=== PATIENT | male | born 1955 | race Caucasian/White ===

== ENCOUNTER 2019-09-17 00:32 | Outpatient (CLI) | payer OTHER, SELFPAY ==
[2019-09-17 17:52] LABS: SARS-CoV-2 RNA PCR Negative
== END 2019-09-17 00:33 | disposition home or self-care (01) ==
LOC: ANHCOVIDDT 00:33
PROVIDERS: PCP Family Medicine Adolescent Medicine; Visit Provider Internal Medicine Gastroenterology
DX: Z20.828 Contact with and (suspected) exposure to other viral communicable diseases (principal); Z01.812 Encounter for preprocedural laboratory examination
CPT/HCPCS: 87635; C9803; U0003

== ENCOUNTER 2019-09-20 02:44 | Day surgery (SDC) | payer OTHER, SELFPAY ==
[2019-09-16 13:11] VITALS: BMI 38.6
--- NOTE | 2019-09-20 08:55 | WPDANESEPPF ---
Anes - Initial Pre Proc Eval Procedure: Operation Date: 09/20/19 10:00 Proposed Procedures p Esophagogastroduodenoscopy & Screening Colonoscopy - Mao Abel MD Date/Time: 09/20/19 08:55 Surgeon: Mao Abel MD Pre Op Diagnosis: Hx Colon Polyps/ Epigastric Pain Patient Data Age: 64 Gender: M Height: 5 ft 4 in Weight: 102 kg Allergies Allergy/AdvReac Type Severity Reaction Status Date / Time No Known Allergies Allergy Mild Verified 09/20/19 09:01 Home Medications Medication Instructions Recorded Confirmed Type atorvastatin 40 mg PO HS 09/16/19 09/16/19 History ezetimibe 10 mg PO DAILY 09/16/19 09/16/19 History indomethacin 50 mg TID 09/16/19 09/16/19 History lorazepam 1 mg PO BID PRN 09/16/19 09/16/19 History pantoprazole 40 mg PO BID 09/16/19 09/16/19 History sertraline 100 mg DAILY 09/16/19 09/16/19 History tramadol 50 mg PO Q6H PRN 09/16/19 09/16/19 History Patient hx anesthesia problems: none Family hx anesthesia problems: none PMFSH Past Medical History Medical History (Updated 09/20/19 @ 08:56 by Ankit Frausto MD) Depression GERD (gastroesophageal reflux disease) Hyperlipidemia Obesity Surgical History Surgical History H/O arthroscopic knee surgery History of carpal tunnel surgery Social History Social History Gender identity (if verbalized by the patient): Male Anes - Eval Final PreProcedure Day of Procedure 09/20/19 08:55 Patient weight: obese Heart: regular rate and rhythm Lungs: clear to auscultation Airway: Mallampati scale class II Neurological: alert and oriented Last oral intake: >/= 8 hours ASA classification: III Emergent: no Anesthetic plan: proceed Anesthesia type and monitoring: general GIVS and standard monitoring Informed Consent: The patient's anesthetic plan and its attendant risks and benefits were discussed with the patient/family/POA. Questions were solicited and answers provided to the satisfaction of the patient/family/POA.
[2019-09-20 09:04] VITALS: BP 145/74; PULSE 85; RESP 16; TEMP 36.6; O2SAT 96
--- NOTE | 2019-09-20 09:09 | WPDGICN ---
Assessment and Plan Assessment and plan (1) Epigastric abdominal pain: Code(s): R10.13 - Epigastric pain Status: Acute Assessment and Plan: Patient with new epigastric pain poorly responsive to proton pump inhibitors. Plan is to evaluate further with an EGD. (2) GERD (gastroesophageal reflux disease): Code(s): K21.9 - Gastro-esophageal reflux disease without esophagitis Status: Acute Assessment and Plan: Long history of GE reflux disease previously stable on PPI. Now with epigastric pain. Plan to proceed with EGD to assess more thoroughly. (3) History of colon polyps: Code(s): Z86.010 - Personal history of colonic polyps Status: Acute Assessment and Plan: Patient has a distant history of colon polyp. Plan is for surveillance exam at this time. Colonoscopy will be performed. (4) DJD (degenerative joint disease) of cervical spine: Code(s): M47.812 - Spondylosis without myelopathy or radiculopathy, cervical region Status: Acute GI Consult Note Consult date/time: 09/20/19 09:09 HPI: Indra Olivera is a 64 year old male Seen in evaluation at the request of Dr. Pratik West. Patient has a long history of acid reflux. He states symptoms have been present for 30 years. He typically would get heartburn and acid regurgitation. Symptoms have responded well to proton pump inhibitors. In May of 2019 patient had recurrence with epigastric pain in the midepigastric area of the abdomen. He describes pain radiating to the back. States that his current symptoms come and go. He no longer has improvement with taking pantoprazole 40 mg p.o. b.i.d.. He does notice that he has arthritis in his neck for which he takes indomethacin 50 mg p.o. t.i.d.. He has noticed slight improvement on discontinuing this medication. He denies any weight loss or bleeding. Past medical history is also significant for colon polyps. He initially had colon polyps 20 years ago. He also had colon polyps 15 years ago. Most recent exam was unremarkable. Patient denies any alteration in his bowel habits. He denies any pain or bleeding. Family history is noncontributory. Review of Systems Review of Systems: All systems reviewed & are unremarkable except as noted in HPI and below [facility] Past Medical History Medical History Depression GERD (gastroesophageal reflux disease) Hyperlipidemia Obesity Surgical History Surgical History H/O arthroscopic knee surgery History of carpal tunnel surgery Social History Social History Gender identity (if verbalized by the patient): Male Meds Home Medications and Allergies Home Medications Medication Instructions Recorded Confirmed Type atorvastatin 40 mg PO HS 09/16/19 09/20/19 History ezetimibe 10 mg PO DAILY 09/16/19 09/16/19 History indomethacin 50 mg TID 09/16/19 09/16/19 History lorazepam 1 mg PO BID PRN 09/16/19 09/16/19 History pantoprazole 40 mg PO BID 09/16/19 09/16/19 History sertraline 100 mg DAILY 09/16/19 09/16/19 History tramadol 50 mg PO Q6H PRN 09/16/19 09/16/19 History Allergies Allergy/AdvReac Type Severity Reaction Status Date / Time No Known Allergies Allergy Mild Verified 09/20/19 09:01 Vital Signs Vital Signs - 24 hr 09/20/19 09:04 Temperature 36.6 C Pulse Rate 85 Respiratory Rate 16 Blood Pressure 145/74 H Pulse Oximetry 96 Results Labs Labs: Physical exam reveals patient to be alert. Vital signs are stable. HEENT exam unremarkable. Lungs are clear to auscultation and percussion. Heart is without murmur or extra sounds. Abdominal exam bowel sounds are present soft nontender with no organomegaly. Digital external rectal exam is normal.
[2019-09-20] MEDS: LACTATED RINGERS 1,000 ML 150 ML IV CONT (09:31)
--- NOTE | 2019-09-20 10:45 | SUR.OPER ---
EGD END TIME 1042 COLON START TIME 1044
[2019-09-20 11:01] VITALS: BP 127/70; PULSE 69; RESP 17; O2SAT 97
[2019-09-20 11:11] VITALS: BP 126/73; PULSE 69; RESP 25; O2SAT 97
[2019-09-20 11:21] VITALS: BP 130/72; PULSE 75; RESP 21; O2SAT 97
== END 2019-09-20 11:40 | disposition home or self-care (01) ==
PROVIDERS: PCP Family Medicine Adolescent Medicine; Visit Provider Internal Medicine Gastroenterology
PROC: 0DJ08ZZ Inspection of Upper Intestinal Tract, Via Natural or Artificial Opening Endoscopic (ICD-10-PCS; CPT 43235; principal; 2019-09-20 10:00)
DX: Z12.11 Encounter for screening for malignant neoplasm of colon (principal); K64.8 Other hemorrhoids; K57.30 Diverticulosis of large intestine without perforation or abscess without bleeding; K29.80 Duodenitis without bleeding; K21.9 Gastro-esophageal reflux disease without esophagitis; M47.812 Spondylosis without myelopathy or radiculopathy, cervical region; E78.5 Hyperlipidemia, unspecified; F32.9 Major depressive disorder, single episode, unspecified; E66.9 Obesity, unspecified; Z68.39 Body mass index [BMI] 39.0-39.9, adult
CPT/HCPCS: 43239; G0105; 87081; J2704; J7120

== ENCOUNTER → 2020-07-20 10:01 | Outpatient (CLI) | payer OTHER, SELFPAY ==
--- NOTE | ~2020-07-20 | XR_ITS ---
XR chest 2V DATE: 07/20/2020 10:24 INDICATION: Dyspnea on exertion TECHNIQUE: 2 views COMPARISON: 03/11/2019 2 view chest FINDINGS: Normal heart size. Aortic arch calcification. No hilar or mediastinal enlargement. No pulmo nary infiltrate or consolidation, pleural effusion or pulmonary vascular congestion or pneumothorax. Diffuse idiopathic skeletal hyperostosis of the thoracic spine. IMPRESSION: No active cardiopulmonary disease Reviewed, dictated and finalized at location A.
== END ==
PROVIDERS: PCP Family Medicine Adolescent Medicine; Visit Provider Family Medicine Adolescent Medicine
DX: R06.09 Other forms of dyspnea (principal)
CPT/HCPCS: 71046

== ENCOUNTER 2022-02-01 11:15 | Outpatient (CLI) | payer OTHER, SELFPAY ==
--- NOTE | ~2022-02-01 | XR_ITS ---
XR hip BI 2V w AP pelvis DATE: 02/01/2022 12:01 INDICATION: Hip pain TECHNIQUE: AP pelvis. AP and lateral views of each hip. COMPARISON: None FINDINGS: No pelvic fracture or bone destruction. No fracture or dislocation, avascular necrosis or b one destruction of either hip. Pubic symphysis and sacral iliac joints are intact. There is a transitional lumbosacral vertebra. Degenerative spurring of the lower lumbar spine. IMPRESSION: Transitional lumbosacral vertebra No fracture or dislocation of either hip Reviewed, dictated and finalized at location A.
--- NOTE | ~2022-02-01 | XR_ITS ---
XR shoulder RT min 2V DATE: 02/01/2022 12:02 INDICATION: Right shoulder pain TECHNIQUE: 4 views COMPARISON: None FINDINGS: No fracture or dislocation, periosteal reaction or bone destruction. Mild spurring at the r ight acromion clavicular joint. Diffuse idiopathic skeletal hyperostosis of the thoracic spine. Degenerative disc disease of the lowe r cervical spine. IMPRESSION: Mild degenerative spurring of the right acromion clavicular joint Degenerative disease in lower cervical spine and diffuse idiopathic skeletal hyperostosis of the thor acic spine Reviewed, dictated and finalized at location A. IMPRESSION: Mild degenerative spurring of the right acromion clavicular joint Degenerative disease in lower cervical spine and diffuse idiopathic skeletal hy perostosis of the thoracic spine
--- NOTE | ~2022-02-01 | XR_ITS ---
EXAMINATION: XR_[id number]_CR, XR thoracic spine 2V, XR lumbar spine 2-3V DATE: 02/01/2022 12:02 INDICATION: Neck pain TECHNIQUE: 1. AP, lateral and odontoid views of the cervical spine were obtained. 2. AP, lateral and lateral swimmers views of the thoracic spine were obtained. 3. AP, lateral and cone-down lateral lumbosacral views of the lumbar spine were obtained. COMPARISON: Two-view chest radiograph dated 07/20/2020 FINDINGS: Cervical spine: Alignment is normal. Dens is intact. Mild to moderate atlantoaxial articulation. Vertebral body heigh ts are normal. Moderate disc height loss at C5-C6 and mild disc height loss at C6-C7 with degenerativ e endplate changes, posterior endplate osteophytes and at least moderate bilateral uncovertebral oste oarthritis at both levels. Multilevel mild to moderate cervical facet osteoarthritis. No fracture young ntified. Prevertebral soft tissues are normal. Thoracic spine: There are 11 paired rib bearing thoracic segments. Mild thoracic dextrocurvature. Sagittal alignment is normal. Minimal likely physiologic anterior wedging at T11. More cephalad vertebral body heights a re normal. Mild disc height loss at a few levels the mid and lower thoracic spine. There are bridging osteophytes at multiple levels in the thoracic spine, predominantly on the right, consistent with di ffuse idiopathic skeletal hyperostosis (DISH). Lung volumes are small particularly on the lateral pro jection likely related to expiratory phase of imaging. Lumbar spine: Transitional thoracolumbar segment which will be designated L1 with tiny hypoplastic left-sided rible t. Partially lumbarized S1 segment with 4 intervening nonrib-bearing lumbar segments L2-L5. Alignment is normal. Vertebral body heights are normal. Disc heights are normal. There are right sided and ant erior endplate osteophytes. Moderate lower lumbar facet osteoarthritis. Sacral arches are intact. No fracture identified. Mild bilateral sacroiliac osteoarthritis. There is also mild right and mild to m oderate left hip osteoarthritis. IMPRESSION: 1. Moderate cervical and mild thoracic and lumbar spondylosis. No evident acute osseous abnormality. Reviewed, dictated and finalized at location B. IMPRESSION: 1. Moderate cervical and mild thoracic and lumbar spondylosis. No evident acute osseous abnormality. IMPRESSION: 1. Moderate cervical and mild thoracic and lumbar spondylosis. No evident acute osseous abnormality.
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
== END 2022-02-01 11:16 ==
PROVIDERS: PCP Family Medicine Adolescent Medicine; Visit Provider Family Medicine Adolescent Medicine
DX: M25.511 Pain in right shoulder (principal); M25.512 Pain in left shoulder; M25.551 Pain in right hip; M25.552 Pain in left hip; M50.30 Other cervical disc degeneration, unspecified cervical region; M51.36 Other intervertebral disc degeneration, lumbar region; M47.894 Other spondylosis, thoracic region; M47.892 Other spondylosis, cervical region; M47.896 Other spondylosis, lumbar region
CPT/HCPCS: 72040; 72070; 72100; 73030; 73521

== ENCOUNTER 2023-03-19 09:22 | Outpatient (CLI) | payer OTHER, SELFPAY ==
--- NOTE | ~2023-03-19 | CT_ITS ---
CT scan of the Neck Technique: 2.5 mm axial scans were obtained through the neck after intravenous administration of 75 c c Omnipaque 350. Coronal and sagittal reconstructions of the neck were obtained. Dose reduction techn ique was used on this scan by utilizing automated exposure control and iterative reconstruction techn ique. The dose-length product (DLP) was 411.72 mGy-cm. Clinical History: Left parotid mass Findings: There is probable left level 2 lymphadenopathy, with largest lymph node measuring 2.1 x 2.0 cm (axial image 51). Several more mildly enlarged nodes are present just inferior to this. There is a probable mildly prominent lymph node or mass in the deep portion of the left parotid gland measuring 9 mm in maximum diameter (axial image 45). There is an asymmetric probable ill-defined/irregular mass in the region of the left base of tongue/left palatine tonsil, measuring approximately 2 cm in diameter (cor onal image 45, axial image 60 for example).. Parapharyngeal fat appears normal bilaterally. The parot id and submandibular glands otherwise appear normal. The pharyngeal mucosal spaces appear normal. No soft tissue masses are seen in the neck. The thyroid gland appears normal. Images of the lung apices reveal no abnormalities. Impression: Approximately 2 cm ill-defined/irregular mass in the region of the left base of tongue or left palati ne tonsil, suspicious for neoplastic lesion. Direct inspection and tissue sampling recommended. Pre a nd postcontrast MR could be considered to attempt to better delineate the lesions borders, if clinica lly warranted. Associated level 2 left cervical lymphadenopathy, consistent with lulu metastatic disease, as detail ed above. Case discussed with Dr. West at the time of this reading. 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 Direct inspe ction and tissue sampling recommended. Pre and postcontrast MR could be conside red to attempt to better delineate the lesions borders, if clinically warranted . Associated level 2 left cervical lymphadenopathy, consistent with lulu metasta tic disease, as detailed above. Case discussed with Dr. West at the time of this reading.
[2023-03-19 09:39] LABS: Estimated Glomerular Filt Rate > 60
== END 2023-03-19 09:23 ==
LOC: MICIMG 09:22
PROVIDERS: PCP Family Medicine Adolescent Medicine; Visit Provider Family Medicine Adolescent Medicine
DX: R22.1 Localized swelling, mass and lump, neck (principal)
CPT/HCPCS: 70491; Q9967

== ENCOUNTER 2025-02-17 01:40 | Day surgery (SDC) | payer OTHER, SELFPAY ==
[2025-01-31 15:20] VITALS: BMI 30.2
[2025-02-17 09:53] VITALS: BP 166/76; PULSE 72; RESP 18; TEMP 36.3; O2SAT 95
[2025-02-17] MEDS: LACTATED RINGERS 1,000 ML 150 ML IV CONT (10:04)
--- NOTE | 2025-02-17 10:15 | WPDANESEPPF ---
Anes - Initial Pre Proc Eval Procedure: Operation Date: 02/17/25 14:00 Proposed Procedures p Screening Colonoscopy - Taqueria Abernathy MD Date/Time: 02/17/25 10:15 Surgeon: Taqueria Abernathy MD Pre Op Diagnosis: Personal history of colon polyps, unspecified Patient Data Age: 69 Gender: M Height: 1.63 m Weight: 78.1 kg Last Vital Signs Temp 36.3 C L 02/17/25 09:53 Pulse 72 02/17/25 09:53 Resp 18 02/17/25 09:53 BP 166/76 H 02/17/25 09:53 Pulse Ox 95 02/17/25 09:53 O2 Del Method Room Air 02/17/25 09:53 Allergies Allergy/AdvReac Type Severity Reaction Status Date / Time lisinopril AdvReac Intermediate Cough Verified 02/17/25 09:51 Seasonal Allergies Allergy Mild Watery Eye Uncoded 05/13/24 11:22 Home Medications ?Medication ?Instructions ?Recorded ?Confirmed ?Type ascorbic acid (vitamin C) 500 mg 500 mg PO DAILY 07/01/22 02/17/25 History capsule,extended release (Vitamin C) multivitamin 1 tablet PO DAILY 07/01/22 02/17/25 History sildenafil 100 mg tablet 100 mg PO DAILY PRN sexual 10/31/22 01/31/25 Rx activity #10 tabs valsartan 160 mg tablet See Rx Instructions .Route 03/25/23 02/17/25 Rx Held on 09/30/23. .COMPLEX #90 tabs Instructions: .Provider Order baclofen 20 mg tablet 20 mg PO TID #20 tabs 01/20/24 01/31/25 Rx pantoprazole 40 mg tablet,delayed 40 mg PO BID #180 tabs 05/24/24 02/17/25 Rx release solifenacin 10 mg tablet 10 mg PO DAILY #90 tabs 07/27/24 02/17/25 Rx tramadol 50 mg tablet See Rx Instructions PO Q6H PRN 11/06/24 01/31/25 Rx Pain #240 tabs atorvastatin 40 mg tablet 40 mg PO DAILY #90 tabs 11/11/24 02/17/25 Rx ezetimibe 10 mg tablet 10 mg PO DAILY #90 tabs 11/11/24 02/17/25 Rx lorazepam 1 mg tablet 1 mg PO BID PRN Anxiety #180 tabs 11/22/24 01/31/25 Rx aspirin 81 mg tablet,delayed 81 mg PO DAILY 01/31/25 02/17/25 History release (Adult Aspirin Regimen) sertraline 100 mg tablet 100 mg PO DAILY 01/31/25 02/17/25 History Patient hx anesthesia problems: none Family hx anesthesia problems: none Results Review: All pre-operative results and documents have been reviewed as part of the pre-operative evaluation. [facility] Past Medical History Medical History (Updated 02/17/25 @ 10:15 by Ankit Frausto MD) Secondary malignant neoplasm lymph nodes of head, face and neck History of colon polyps GERD (gastroesophageal reflux disease) Obesity Depression Hyperlipidemia Surgical History Surgical History History of carpal tunnel surgery H/O arthroscopic knee surgery Family History Family History Father , @ 76 Pulmonary embolism Mother , @ 76 Cerebrovascular accident Social History Social History Years smoked: 25 Smoking status: Former smoker Tobacco type: cigarettes Second hand tobacco smoke exposure: No Additional smoking assessment comments: quit 1989 Alcohol intake: former Alcohol use details: Quit 41 years ago Substance use: former Substance use type: marijuana Other substance usage details: During radiation Lack of Transportation: No Lack of Food: Never True Current Housing: I Have Housing Concerned About Future Housing: YES Difficulty Paying Gas/Electric Bills: YES Difficulty Paying for Meds: YES Currently Unemployed: No Education: Associate Degree Difficulty w/ Childcare or Family Care: No Living arrangements: with family Occupation/Education: occupation Gender identity (if verbalized by the patient): Male Spiritual care concerns: No Anes - Eval Final PreProcedure Day of Procedure 02/17/25 10:15 Patient weight: overweight Heart: regular rate and rhythm Lungs: clear to auscultation Airway: Mallampati scale class II Neurological: alert and oriented Last oral intake: >/= 8 hours ASA classification: III Emergent: no Anesthetic plan: proceed Anesthesia type and monitoring: general GIVS and standard monitoring Results Review: All pre-operative results and documents have been reviewed as part of the pre-operative evaluation. Informed Consent: The patient's anesthetic plan and its attendant risks and benefits were discussed with the patient/family/POA. Questions were solicited and answers provided to the satisfaction of the patient/family/POA.
--- NOTE | 2025-02-17 10:16 | PM.HPGS ---
History of Present Illness History of Present Illness Consent: Risks, benefits, and alternatives have been discussed and questions answered. Patient agrees to proceed with procedure. Chief complaint: Personal history of colon polyps, unspecified Narrative: Indra Olivera is a 69 year old male with screening colonoscopy, last one 2019 Review of Systems Review of Systems: All systems reviewed & are unremarkable except as noted in HPI and below PMFSH Past Medical History Medical History (Updated 02/17/25 @ 10:17 by Taqueria Abernathy MD) Colon cancer screening Secondary malignant neoplasm lymph nodes of head, face and neck History of colon polyps GERD (gastroesophageal reflux disease) Obesity Depression Hyperlipidemia Surgical History Surgical History History of carpal tunnel surgery H/O arthroscopic knee surgery Family History Family History Father , @ 76 Pulmonary embolism Mother , @ 76 Cerebrovascular accident Social History Social History Years smoked: 25 Smoking status: Former smoker Tobacco type: cigarettes Second hand tobacco smoke exposure: No Additional smoking assessment comments: quit 1989 Alcohol intake: former Alcohol use details: Quit 41 years ago Substance use: former Substance use type: marijuana Other substance usage details: During radiation Lack of Transportation: No Lack of Food: Never True Current Housing: I Have Housing Concerned About Future Housing: YES Difficulty Paying Gas/Electric Bills: YES Difficulty Paying for Meds: YES Currently Unemployed: No Education: Associate Degree Difficulty w/ Childcare or Family Care: No Living arrangements: with family Occupation/Education: occupation Gender identity (if verbalized by the patient): Male Spiritual care concerns: No Meds Home Medications and Allergies Home Medications ?Medication ?Instructions ?Recorded ?Confirmed ?Type ascorbic acid (vitamin C) 500 mg 500 mg PO DAILY 07/01/22 02/17/25 History capsule,extended release (Vitamin C) multivitamin 1 tablet PO DAILY 07/01/22 02/17/25 History sildenafil 100 mg tablet 100 mg PO DAILY PRN sexual 10/31/22 01/31/25 Rx activity #10 tabs valsartan 160 mg tablet See Rx Instructions .Route 03/25/23 02/17/25 Rx Held on 09/30/23. .COMPLEX #90 tabs Instructions: .Provider Order baclofen 20 mg tablet 20 mg PO TID #20 tabs 01/20/24 01/31/25 Rx pantoprazole 40 mg tablet,delayed 40 mg PO BID #180 tabs 05/24/24 02/17/25 Rx release solifenacin 10 mg tablet 10 mg PO DAILY #90 tabs 07/27/24 02/17/25 Rx tramadol 50 mg tablet See Rx Instructions PO Q6H PRN 11/06/24 01/31/25 Rx Pain #240 tabs atorvastatin 40 mg tablet 40 mg PO DAILY #90 tabs 11/11/24 02/17/25 Rx ezetimibe 10 mg tablet 10 mg PO DAILY #90 tabs 11/11/24 02/17/25 Rx lorazepam 1 mg tablet 1 mg PO BID PRN Anxiety #180 tabs 11/22/24 01/31/25 Rx aspirin 81 mg tablet,delayed 81 mg PO DAILY 01/31/25 02/17/25 History release (Adult Aspirin Regimen) sertraline 100 mg tablet 100 mg PO DAILY 01/31/25 02/17/25 History Allergies Allergy/AdvReac Type Severity Reaction Status Date / Time lisinopril AdvReac Intermediate Cough Verified 02/17/25 09:51 Seasonal Allergies Allergy Mild Watery Eye Uncoded 05/13/24 11:22 Vital Signs Vital Signs - 24 hr 02/17/25 09:53 Temperature 97.4 F L Pulse Rate 72 Respiratory Rate 18 Blood Pressure 166/76 H Pulse Oximetry 95 Oxygen Delivery Room Air Exam Const: General: comfortable and no acute distress Resp: Auscultation: clear to auscultation bilaterally Cardio: Rate: regular rate Rhythm: regular rhythm GI: Inspection: non-distended GI Palp: Yes Soft to palpation Skin: General skin exam: normal color Extrem: General: normal to inspection Psych: Mental Status: mental status grossly normal Assessment and Plan Assessment and plan (1) Colon cancer screening: Code(s): Z12.11 - Encounter for screening for malignant neoplasm of colon Status: Acute Assessment and Plan: colonoscopy
[2025-02-17 10:34] VITALS: BP 118/63; PULSE 58; RESP 22; O2SAT 98
[2025-02-17 10:44] VITALS: BP 135/63; PULSE 64; RESP 18; O2SAT 100
[2025-02-17 10:54] VITALS: BP 132/69; PULSE 57; RESP 18; O2SAT 100
== END 2025-02-17 11:02 | disposition home or self-care (01) ==
PROVIDERS: PCP Family Medicine Adolescent Medicine; Referring Provider Family Medicine Adolescent Medicine; Visit Provider Internal Medicine Gastroenterology
PROC: 0DJD8ZZ Inspection of Lower Intestinal Tract, Via Natural or Artificial Opening Endoscopic (ICD-10-PCS; CPT 45378; principal; 2025-02-17 14:00)
DX: Z12.11 Encounter for screening for malignant neoplasm of colon (principal); K64.8 Other hemorrhoids; K57.30 Diverticulosis of large intestine without perforation or abscess without bleeding; E78.5 Hyperlipidemia, unspecified; F32.A Depression, unspecified; K21.9 Gastro-esophageal reflux disease without esophagitis; Z79.891 Long term (current) use of opiate analgesic; Z79.82 Long term (current) use of aspirin; Z98.890 Other specified postprocedural states; Z86.0100 Personal history of colon polyps, unspecified; Z87.891 Personal history of nicotine dependence; Z92.3 Personal history of irradiation; Z85.89 Personal history of malignant neoplasm of other organs and systems; Z82.49 Family history of ischemic heart disease and other diseases of the circulatory system
CPT/HCPCS: G0105; J2003; J2704; J7120